=== PATIENT | female | born 1940 | race Caucasian/White ===

== ENCOUNTER 2016-03-25 08:30 | Day surgery (SDC) | payer MEDICARE, MEDICAID ==
[2016-03-20 11:48] VITALS: BMI 28.1
[~2016-03-25 08:30] MED LIST: LACTATED RINGERS 1,000 ML IV SCH
[2016-03-25 09:31] VITALS: TEMP 98
[2016-03-25] MEDS ORDERED: LIDOCAINE 1% 20 ML VIAL (10MG/ML) FOR IV START INTRADERMA ONE (09:32)
[2016-03-25] MEDS ORDERED: PROPOFOL 10 MG/ML 20 ML VIAL IV ONE (09:39)
--- NOTE | 2016-03-25 09:49 | P.PCN ---
Date of Procedure: 03/25/16 Procedure(s) Performed: BRIEF HISTORY: Patient is a 76-year-old, pleasant, white female, scheduled for an upper endoscopy as a part of evaluation of dysphagia to solids for the last few months duration. She feels food gets stuck in the midsternal area, usually with solids and occasionally with liquids. She does have long-standing history history of Parkinson's disease. PROCEDURE PERFORMED: Esophagogastroduodenoscopy with biopsy PREOPERATIVE DIAGNOSIS: Intermittent dysphagia to solids . IV sedation per anesthesia. PROCEDURE: After informed consent was obtained, the patient was brought into the endoscopy unit. IV conscious sedation was administered by Anesthesia under continuous monitoring. Initially the Olympus GIF-140 video endoscope was inserted into the mouth. Esophagus intubated without any difficulty. It was gradually advanced into the stomach and duodenum and carefully examined. The bulb and the second part of the duodenum appeared normal. The scope at this time was withdrawn to the stomach, adequately insufflated with air, and upon careful examination, mucosa of the antrum, body, cardia and the fundus appeared normal. The scope was then withdrawn into the esophagus. Small hiatal hernia noted. The GE junction was located at 35 cm from the incisors. The rest of the esophagus appeared normal. There were 2 distal esophageal erosions with some thickened mucosal folds consistent with LA grade B reflux esophagitis. The patient tolerated the procedure well. IMPRESSION: 1. Small hiatal hernia. 2. 2 linear erosions with some thickened esophageal folds in the distal esophagus consistent with LA grade B reflux esophagitis. 3. No evidence of esophageal stricture. RECOMMENDATIONS: The findings of this examination were discussed with the patient as well as a family. She was advised to follow with the biopsy results. In the meantime I suggested that she increase the Prevacid 30 mg twice daily to be taken half hour before breakfast and dinnertime and follow antireflux measures
[2016-03-25 09:54] VITALS: RESP 16
[2016-03-25 10:13] VITALS: BP 185/77; PULSE 60
--- NOTE | 2016-04-08 20:15 | PCN ---
DATE OF PROCEDURE: 03/25/2016 ADDENDUM TO EGD PROCEDURE NOTE Biopsies were done from the mid/distal esophagus to rule out eosinophilic esophagitis.
== END 2016-03-25 10:48 | disposition home or self-care (01) ==
LOC: ORWHC2ENDO 08:30
PROVIDERS: ATTEND Internal Medicine Gastroenterology
DX: K21.0 Gastro-esophageal reflux disease with esophagitis (principal); K20.0 Eosinophilic esophagitis; K44.9 Diaphragmatic hernia without obstruction or gangrene; I10 Essential (primary) hypertension; E78.5 Hyperlipidemia, unspecified; I25.10 Atherosclerotic heart disease of native coronary artery without angina pectoris; Z95.5 Presence of coronary angioplasty implant and graft; I35.0 Nonrheumatic aortic (valve) stenosis; Z79.82 Long term (current) use of aspirin; Z79.899 Other long term (current) drug therapy
CPT/HCPCS: 88305; 88312; 43239; J2704

== ENCOUNTER → 2016-09-17 | Outpatient (CLI) | payer MEDICARE, MEDICAID ==
--- NOTE | 2016-09-17 23:58 | CONS ---
DATE OF SERVICE: 09/17/2016 This patient is a 76-year-old lady who has been evaluated in the sleep center for obstructive sleep apnea/hypopnea syndrome. HISTORY OF PRESENT ILLNESS/SLEEP-WAKE EVALUATION: History-taking is from the patient and her . Patient was diagnosed with obstructive sleep apnea about 10 years ago. Since that time she has been on treatment with CPAP. Recently, according to her , she opens her mouth while she is using her CPAP and basically cannot properly use the equipment. The patient brought her CPAP unit, which I checked. CPAP pressure is 6 cm of water. Usage is more than 4 hours for only 2 out of 30 nights. The patient's usual sleep schedule is from around 9 p.m. to 7 or 8 a.m. She did not describe any problems with falling asleep. She has a TV set in the bedroom. She wakes up from sleep 2 times, with one episode of nocturia. She snores, has episodes of stopped breathing and choking, heartburn and a history of sleeptalking. [place] Sleepiness Scale is 8. PAST MEDICAL HISTORY: 1. Hypertension. 2. Hyperlipidemia. 3. Some muscle problems. 4. Macular degeneration. PAST SURGICAL HISTORY: 1. Bilateral knee replacement. 2. Cholecystectomy. SOCIAL HISTORY: Negative for smoking or using alcohol. MEDICATIONS: 1. Imdur. 2. Prevacid. 3. Folic acid. 4. Chas Red. 5. Ergocalciferol. 6. Aspirin. 7. Repatha. 8. Coreg. 9. Lisinopril. 10. Melatonin. 11. Dulcolax. 12. Calcium. 13. Vitamin E. 14. Claritin. 15. Advil at bedtime. REVIEW OF SYSTEMS: No fevers. No double vision. No recent chest pain. No shortness of breath. No abdominal pain. No bleeding episodes. No blood in urine. No seizure episodes. Snoring. Sleepiness during the day. Falling asleep in the late afternoon. FAMILY HISTORY: Hypertension, heart problems, hyperlipidemia, stroke, arthritis , sleep apnea, snoring, acid reflux ( ). PHYSICAL EXAM: The patient is a pleasant 76-year-old lady without distress, sitting on the chair, turned to the right. GENERAL: A pleasant patient without distress. HEENT: PERRLA. EOMI. Evaluation of oropharynx showed tongue protrudes midline. Extremely low position of soft palate. NECK: Supple. No JVD. Thyroid is not palpable. LUNGS: Clear to percussion and to auscultation. Good air exchange. No wheezing or rhonchi. HEART: S1, S2 regular. Loud systolic murmur on aorta. ABDOMEN: Slightly obese. EXTREMITIES: No clubbing or cyanosis. Scars on both legs after total knee replacements. 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 Eyes partially closed. Walks with a walker. Balance problems. IMPRESSION: 1. History of obstructive sleep apnea for 10 years. Extremely low position of soft palate. Some restriction of nasal breathing. Not good compliance with CPAP treatment at the present time. 2. Hypertension. 3. Hyperlipidemia. 4. Acid reflux. 5. Balance problems. 6. Horizontal nystagmus. 7. Status post bilateral knee replacement. 8. Status post cholecystectomy. 9. History of macular degeneration. PLAN: 1. Prescription for all necessary CPAP supplies, including mask, tube, filters, chin strap. 2.Follow-up visit to check patient's compliance with treatment and to evaluate her clinical response on treatment by evaluation of apnea/hypopnea index with following decision about necessity to repeat her CPAP titration. 3. Sleep hygiene with regular time in bed for at least 8 hours. [address] Patient [address] not [address]. Thank you very much for referring this patient for consultation. Sincerely, Steven Andrade. , PhD, FAASM. Diplomat of [place] [employer], Sleep Medicine Board by [place] [employer] [place] [employer] Coating Machine Helper of [facility] [place] [facility]
--- NOTE | 2016-09-18 07:38 | CONS ---
DATE OF CONSULT: 09/17/2016 HISTORY OF PRESENT ILLNESS/SLEEP WAKE EVALUATION: 76 year old lady has been evaluated in the sleep center for evaluation of obstructive sleep apnea/ hypopnea syndrome. History taken from the patient and her . The patient has been diagnosed with obstructive sleep apnea about ten years ago. Since that time, on treatment with CPAP. Recently according to her , she opened her mouth while using her CPAP and basically cannot properly use equipment. The patient brought her CPAP unit. I checked CPAP unit. CPAP pressure 6 cm of water. Usage is more than 4 hours. Only 2 out of 30 nights. SLEEP SCHEDULE: The patient's usual sleep schedule from around 9:00 p.m. until 7 or 8 a.m. FALLING ASLEEP: She did not describe any problem with falling asleep. She had t.v. set in bedroom. DURING SLEEP: She wakes up from sleep two times with one episode of nocturia. She snores. Has episodes of stopped breathing and choking. Heartburn. Positive of sleep talking. DURING THE DAY/WAKE STATE: [place] sleep scale is 8. Medications: 1. Imdur. 2. Prevacid. 3. Folic acid. 4. ( ). 5. Ergocalciferol. 6. Aspirin. 7. ( ). 8. Coreg. 9. Lisinopril. 10. Melatonin. 11. Dulcolax. 12. Calcium. 13. Vitamin E. 14. Claritin. 15. Advil at bedtime. PAST MEDICAL HISTORY: Hypertension, hyperlipidemia, some muscle problem, macular degeneration. Past surgical history: Bilateral knee replacement, cholecystectomy. FAMILY HISTORY: Hypertension, heart problems, hyperlipidemia, stroke, arthritis , sleep apnea, snoring, acid reflux, ( ). SOCIAL HISTORY: Negative for smoking or using alcohol. REVIEW OF SYSTEMS: Snoring. Sleepiness during the day. Falling asleep late afternoon. No fevers. No double vision. No recent chest pain. No shortness of breath. No abdominal pain. No bleeding episodes. No blood in urine. No seizure episodes. PHYSICAL EXAM: GENERAL: A pleasant 76 year old lady patient without any distress. Sitting on the chair, turned to the right. VITAL SIGNS: BP, HR, RR, weight, body mass index. HEENT: PERRLA, EOMI. Evaluation of oropharynx shows extremely low position of soft palate. Tongue protrudes midline. NECK: Supple. No JVD. Thyroid is not palpable. LUNGS: Clear to auscultation and percussion. Good air exchange. No wheezing or rhonchi. HEART: S1, S2 regular. Loud systolic murmur on aorta. ABDOMEN: Slightly obese. Soft, nontender. Bowel sounds are preset. No organomegaly appreciated. EXTREMITIES: Scars on both legs after total knee replacement. No clubbing or cyanosis. 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 Eyes partially closed. Walks with a walker. Balance problems. Awake, alert and oriented times three. IMPRESSION: 1. History of obstructive sleep apnea for ten years. Extremely low position of soft palate. Some restriction of nasal breathing. Not good compliance with CPAP treatment at the present time. 2. Hypertension. 3. Hyperlipidemia. 4. Acid reflux. 5. Balance problems. 6. Horizontal nystagmus. 7. Status post bilateral knee replacement. 8. Status post cholecystectomy. 9. History of macular degeneration. PLAN: 1. Prescription for all necessary CPAP supplies including mask, tubes, filters , chin strap. 2. Follow up visit to check patient compliance with treatment and to evaluate her clinical response on treatment by evaluation apnea/hypopnea index with following decision about necessity to repeat her CPAP titration. 3. Sleep hygiene with regular time in bed for at least eight hours. 4. No driving. Patient does not drive. Thank you for referring this patient for consultation. Sincerely, Steven Andrade MD, PhD, FAASM Diplomat of [place] [employer]. Sleep Medicine Board by [place] [employer] [place] [employer] Assurance Sourcing Manager of [facility]
== END | disposition home or self-care (01) ==
LOC: SLEEP 15:03
PROVIDERS: ATTEND Internal Medicine
DX: K21.9 Gastro-esophageal reflux disease without esophagitis (principal); H55.00 Unspecified nystagmus; I10 Essential (primary) hypertension; E78.5 Hyperlipidemia, unspecified; Z90.49 Acquired absence of other specified parts of digestive tract; Z96.653 Presence of artificial knee joint, bilateral
CPT/HCPCS: 99211

== ENCOUNTER → 2017-01-28 | Outpatient (CLI) | payer MEDICARE, MEDICAID ==
--- NOTE | 2017-01-28 15:17 | PN ---
PROGRESS NOTE DATE OF SERVICE: 01/28/2017. 77-year-old lady who has been followed in Sleep Center for treatment of obstructive sleep apnea-hypopnea syndrome. Recently she has a CPAP titration and on the basis of results of titration see received new CPAP unit results of titration was very good. At the pressure off 10 cm of water her respiration normalized. Apnea-hypopnea index was 1.6 with oxygen level above 92.6%. The patient came for followup visit with her new CPAP unit. According to her , she opens her mouth during the sleep. I checked her CPAP unit. CPAP pressure is 10 cm of water. Usage is / nights for more than 4 hours, average 8.4 hours. Very good compliance. Extremely high level of leak 65 L/minute. Apnea-hypopnea index reading from the machine is high 26.1 with total apnea index 25.9 and central apnea index 7.3. MEDICATIONS: Include Prevacid, Adderall, ergocalciferol, aspirin, , Coreg, lisinopril, melatonin, Dulcolax, calcium, vitamin E, Claritin. PHYSICAL EXAM: GENERAL The patient in no distress. VITAL SIGNS BP 141/80, HR 60, RR 16, weight 150 pounds, temperature 98.4, oxygen saturation room air 98%. HEENT PERRLA, EOMI, evaluation of oropharynx showed extremely low position of soft palate. NECK Supple, no JVD. Thyroid is not palpable. LUNGS Clear to percussion and to auscultation. Good air exchange. No wheezing or rhonchi. HEART Loud systolic murmur on aorta. ABDOMEN Soft and nontender. Bowel sounds are present. No organomegaly appreciated. EXTREMITIES No clubbing or cyanosis. [employer] Awake, alert, and oriented X3. Cranial nerves 2 to 7 intact. There is no fasciculation or atrophy. noted. No focal deficits observed. Horizontal nystagmus, looks sleepy, walks with a walker and some balance problems. IMPRESSION: 1. Obstructive sleep apnea-hypopnea syndrome. The patient demonstrated great compliance with treatment benefitting from treatment. 2. Extremely high leak with treatment most probably related to opening her mouth and this could be the reason for insufficient pressure in her oropharynx and subsequently insufficient treatment. 3. Hypertension. 4. Hyperlipidemia. 5. Balance problems. 6. Acid reflux. 7. Status post bilateral knee replacement. 8. Status post cholecystectomy. 9. History of macular degeneration. PLAN: 1. Will try chinstrap with a goal to prevent opening mouth during the sleep. 2. I will recheck the patient data with the usage of a chinstrap. Hopefully it will help her to breathe better during the sleep. 3. Continue to use CPAP equipment every night. 4. Sleep hygiene with time in bed at least 8 hours. 5. The patient does not drive. Thank you very much for allowing me to participate in management of your patient. The patient was tried previously on the fullface mask, but she cannot tolerate that. MMODL / IJN: [id number] /
== END | disposition home or self-care (01) ==
LOC: SLEEP 13:37
PROVIDERS: ATTEND Internal Medicine
DX: G47.33 Obstructive sleep apnea (adult) (pediatric) (principal); I10 Essential (primary) hypertension; E78.5 Hyperlipidemia, unspecified; K21.9 Gastro-esophageal reflux disease without esophagitis; Z90.49 Acquired absence of other specified parts of digestive tract; Z96.653 Presence of artificial knee joint, bilateral; Z86.69 Personal history of other diseases of the nervous system and sense organs; Z79.82 Long term (current) use of aspirin; Z79.02 Long term (current) use of antithrombotics/antiplatelets; Z79.899 Other long term (current) drug therapy

== ENCOUNTER 2017-02-25 14:32 | Emergency (ER) | payer MEDICARE, MEDICAID ==
[~2017-02-25 14:32] MED LIST changes: -LACTATED RINGERS 1,000 ML IV SCH; +SODIUM BICARB 8.4% 50 ML SYR (1 MEQ/ML) ONE
[2017-02-25] MEDS ORDERED: AMIODARONE 50 MG/ML 3 ML VIAL IV ONE (14:33)
[2017-02-25] MEDS ORDERED: EPINEPHrine 10 ML SYRINGE (0.1 MG/ML) IV ONE (14:33)
[2017-02-25] MEDS ORDERED: LORazepam 2 MG/ML INJ IV PRN ×2 (14:39)
[2017-02-25] MEDS ORDERED: PROPOFOL 1,000 MG in EMPTY BAG 1 BAG IV SCH (14:45)
--- NOTE | 2017-02-25 14:58 | ED ---
General Adult HPI - General Chief complaint: Cardiac Arrest/CPR Stated complaint: UNRESPONSIVE Time Seen by Provider: 02/25/17 14:39 Source: EMS, RN notes reviewed Mode of arrival: EMS Limitations: altered mental status, physical limitation - History of Present Illness Initial comments: Patient is an unresponsive 77-year-old female presenting to the emergency department as a priority 1 cardiac arrest. Patient arrives by EMS. Patient is unresponsive and provides no history. Medics report patient originally called for dyspnea. They did receive a call at 1317. They did arrive on scene at 1329 and patient was in asystole with bystander CPR. They did provide 8 epinephrine. Patient originally was asystole however converted to PEA. Further history is limited. - Related Data Home Medications Medication Instructions Recorded Confirmed Aspirin 81 mg PO AC-BRKFST 10/14/14 02/25/17 Bisacodyl [Dulcolax] 5 mg PO DAILY PRN 10/14/14 02/25/17 Calcium/Magnesium/Zinc 3 tab PO DAILY 10/14/14 02/25/17 [Ptwwlan-Odduzryzh-Okkz Tablet] Carvedilol [Coreg] 6.25 mg PO AC-BID 10/14/14 02/25/17 Ergocalciferol [Vitamin D2] 50,000 unit PO WE 10/14/14 02/25/17 Ibuprofen/Diphenhydramine HCl 2 cap PO HS PRN 10/14/14 02/25/17 [Advil Pm Liqui-Gels] Isosorbide Mononitrate ER [Imdur] 30 mg PO HS 10/14/14 02/25/17 Megared 500 mg PO AC-BRKFST 10/14/14 02/25/17 Melatonin 5 mg PO HS 10/14/14 02/25/17 Vitamin E (Dl,Tocopheryl Acet) 400 unit PO AC-BRKFST 10/14/14 02/25/17 [Vitamin E] Evolocumab [Repatha Sureclick] 140 mg SQ Q14D 03/20/16 02/25/17 Ubidecarenone [Co Q-10] 200 mg PO BID 03/20/16 02/25/17 Lisinopril [Zestril] 10 mg PO BID 02/25/17 02/25/17 Loratadine [Claritin] 10 mg PO AC-BRKFST PRN 02/25/17 02/25/17 Pantoprazole Sodium [Protonix] 40 mg PO DAILY 02/25/17 02/25/17 Vit C/E/Zn/Coppr/Lutein/Zeaxan 1 cap PO BID 02/25/17 02/25/17 [Preservision Areds 2 Softgel] Vitamin B Complex 1 cap PO AC-BRKFST 02/25/17 02/25/17 Allergies Allergy/AdvReac Type Severity Reaction Status Date / Time No Known Allergies Allergy Verified 02/25/17 15:10 Review of Systems ROS Statement: Those systems with pertinent positive or pertinent negative responses have been documented in the HPI. ROS Other: All systems not noted in ROS Statement are negative. Limitations: ROS unobtainable due to patients medical condition Respiratory: Reports: dyspnea Past Medical History Past Medical History: Coronary Artery Disease (CAD), Hyperlipidemia, Hypertension Additional Past Medical History / Comment(s): parkinson disease, aortic stenosis ; low iron History of Any Multi-Drug Resistant Organisms: None Reported Past Surgical History: Back Surgery, Cholecystectomy, Heart Catheterization With Stent, Joint Replacement Additional Past Surgical History / Comment(s): L & R knee relpacements Past Anesthesia/Blood Transfusion Reactions: No Reported Reaction Date of Last Stent Placement:: 2011 Past Psychological History: No Psychological Hx Reported Smoking Status: Never smoker Past Alcohol Use History: None Reported Past Drug Use History: None Reported - Past Family History Mother Family Medical History: No Reported History General Exam Limitations: altered mental status, physical limitation General appearance: obtunded Head exam: Present: atraumatic Eye exam: Present: other (Pupils fixed and dilated) ENT exam: Present: other (Intubated) Neck exam: Present: normal inspection Respiratory exam: Present: rales Cardiovascular Exam: Present: other (No pulse. No spontaneous heart sounds) GI/Abdominal exam: Present: soft. Absent: tenderness Extremities exam: Present: normal inspection Neurological exam: Present: other (Unresponsive. GCS 3.) Psychiatric exam: Present: other (Unresponsive) Skin exam: Present: pallor Course Vital Signs 02/25/17 02/25/17 02/25/17 15:21 15:31 15:39 Temperature 97.2 F L Pulse Rate 62 61 43 L Respiratory 12 12 12 Rate Blood Pressure 92/53 99/60 O2 Sat by Pulse 66 L 70 L Oximetry - Reevaluation(s) Reevaluation #1: 02/25/17 14:58 Shortly after arrival and 1 epinephrine patient did have return of pulse. Patient lost this after several minutes and had returned again after 1 epinephrine. 02/25/17 15:08 Case was discussed with cardiology Dr. Ayala who agrees there is not value [place] patient to the [employer] at this time. 02/25/17 15:15 Daughter updated. She would like patient to remain full code at this time. 02/25/17 16:18 Patient again lost pulses at 1545. Patient had PA and V. fib and then asystole. At 1605 patient continued to have no pulse. Asystole. No spontaneous respirations. Pupils fixed and dilated. No response to pain. No heart sounds. Time of is 1605. Family is present and notified. 02/25/17 16:19 Patient did have copious amounts of blood coming from the endotracheal tube, oral gastric tube, and rectum. 02/25/17 16:[address] Galdamez out of [place] who is familiar with this patient. She states patient does have a mild Parkinson-like disease. worker's compensation claims examiner Jessica was notified and does okay to release the body. EKG Findings - EKG Comments: EKG Findings:: EKG shows normal sinus rhythm 85. MT 184. QRS 108. QT 428. QTC 509. Normal axis. ST elevation inferior with reciprocal changes V2 through V3. Procedures - ABG Interpretation Ph: 6.99 PCO2: 69.3 PO2: 68 Interpretation: respiratory acidosis, metabolic acidosis Medical Decision Making - Lab Data Result diagrams: 02/25/17 15:42 02/25/17 15:42 Lab Results 02/25/17 02/25/17 02/25/17 Range/Units 15:24 15:30 15:42 WBC 16.1 H (3.8-10.6) k/uL RBC 3.90 (3.80-5.40) m/uL Hgb 11.7 (11.4-16.0) gm/dL Hct 37.8 (34.0-46.0) % MCV 96.9 (80.0-100.0) fL MCH 30.1 (25.0-35.0) pg MCHC 31.0 (31.0-37.0) g/dL RDW 13.2 (11.5-15.5) % Plt Count 207 (150-450) k/uL Neutrophils % 73 % Lymphocytes % 22 % Monocytes % 2 % Eosinophils % 1 % Basophils % 1 % Neutrophils # 11.8 H (1.3-7.7) k/uL Lymphocytes # 3.6 (1.0-4.8) k/uL Monocytes # 0.3 (0-1.0) k/uL Eosinophils # 0.2 (0-0.7) k/uL Basophils # 0.1 (0-0.2) k/uL Hypochromasia Marked PT (9.0-12.0) sec INR (<1.2) APTT (22.0-30.0) sec Sample Site R BRACH ABG pH <7.00 L* (7.35-7.45) ABG pCO2 69 H (35-45) mmHg ABG pO2 68 L (83-108) mmHg ABG HCO3 16 L (21-25) mmol/L ABG Total CO2 18 L (19-24) mmol/L ABG O2 Saturation 80.0 L (94-97) % ABG Base Excess -13.7 mmol/L Marshal Test Yes FiO2 100 % Sodium (137-145) mmol/L Potassium (3.5-5.1) mmol/L Chloride (98-107) mmol/L Carbon Dioxide (22-30) mmol/L Anion Gap mmol/L BUN (7-17) mg/dL Creatinine (0.52-1.04) mg/dL Est GFR (MDRD) Af Amer (>60 ml/min/1.73 sqM) Est GFR (MDRD) Non-Af (>60 ml/min/1.73 sqM) Glucose (74-99) mg/dL Calcium (8.4-10.2) mg/dL Total Bilirubin (0.2-1.3) mg/dL AST (14-36) U/L ALT (9-52) U/L Alkaline Phosphatase (38-126) U/L Total Creatine Kinase (30-135) U/L CK-MB (CK-2) (0.0-2.4) ng/mL CK-MB (CK-2) Rel Index Troponin I (0.000-0.034) ng/mL NT-Pro-B Natriuret Pep pg/mL Total Protein (6.3-8.2) g/dL Albumin (3.5-5.0) g/dL Urine Color Yellow Urine Appearance Cloudy H (Clear) Urine pH 6.0 (5.0-8.0) Ur Specific [place] 1.014 (1.001-1.035) Urine Protein 1+ H (Negative) Urine Glucose (UA) Negative (Negative) Urine Ketones Negative (Negative) Urine Blood Negative (Negative) Urine Nitrite Positive H (Negative) Urine Bilirubin Negative (Negative) Urine Urobilinogen <2.0 (<2.0) mg/dL Ur Leukocyte Esterase Trace H (Negative) Urine RBC 5 (0-5) /hpf Urine WBC 20 H (0-5) /hpf Urine Bacteria Many H (None) /hpf Urine Mucus Many H (None) /hpf 02/25/17 02/25/17 02/25/17 Range/Units 15:42 15:42 15:42 WBC (3.8-10.6) k/uL RBC (3.80-5.40) m/uL Hgb (11.4-16.0) gm/dL Hct (34.0-46.0) % MCV (80.0-100.0) fL MCH (25.0-35.0) pg MCHC (31.0-37.0) g/dL RDW (11.5-15.5) % Plt Count (150-450) k/uL Neutrophils % % Lymphocytes % % Monocytes % % Eosinophils % % Basophils % % Neutrophils # (1.3-7.7) k/uL Lymphocytes # (1.0-4.8) k/uL Monocytes # (0-1.0) k/uL Eosinophils # (0-0.7) k/uL Basophils # (0-0.2) k/uL Hypochromasia PT 15.4 H (9.0-12.0) sec INR 1.7 H (<1.2) APTT 47.6 H (22.0-30.0) sec Sample Site ABG pH (7.35-7.45) ABG pCO2 (35-45) mmHg ABG pO2 (83-108) mmHg ABG HCO3 (21-25) mmol/L ABG Total CO2 (19-24) mmol/L ABG O2 Saturation (94-97) % ABG Base Excess mmol/L Marshal Test FiO2 % Sodium 140 (137-145) mmol/L Potassium 6.3 H* (3.5-5.1) mmol/L Chloride 112 H (98-107) mmol/L Carbon Dioxide 15 L (22-30) mmol/L Anion Gap 13 mmol/L BUN 25 H (7-17) mg/dL Creatinine 1.26 H (0.52-1.04) mg/dL Est GFR (MDRD) Af Amer 50 (>60 ml/min/1.73 sqM) Est GFR (MDRD) Non-Af 41 (>60 ml/min/1.73 sqM) Glucose 174 H (74-99) mg/dL Calcium 9.2 (8.4-10.2) mg/dL Total Bilirubin 0.4 (0.2-1.3) mg/dL AST 376 H (14-36) U/L ALT 310 H (9-52) U/L Alkaline Phosphatase 174 H (38-126) U/L Total Creatine Kinase 276 H (30-135) U/L CK-MB (CK-2) 7.5 H* (0.0-2.4) ng/mL CK-MB (CK-2) Rel Index 2.7 Troponin I 0.407 H* (0.000-0.034) ng/mL NT-Pro-B Natriuret Pep pg/mL Total Protein 5.9 L (6.3-8.2) g/dL Albumin 2.9 L (3.5-5.0) g/dL Urine Color Urine Appearance (Clear) Urine pH (5.0-8.0) Ur Specific [place] (1.001-1.035) Urine Protein (Negative) Urine Glucose (UA) (Negative) Urine Ketones (Negative) Urine Blood (Negative) Urine Nitrite (Negative) Urine Bilirubin (Negative) Urine Urobilinogen (<2.0) mg/dL Ur Leukocyte Esterase (Negative) Urine RBC (0-5) /hpf Urine WBC (0-5) /hpf Urine Bacteria (None) /hpf Urine Mucus (None) /hpf 02/25/ Range/Units 15:42 WBC (3.8-10.6) k/uL RBC (3.80-5.40) m/uL Hgb (11.4-16.0) gm/dL Hct (34.0-46.0) % MCV (80.0-100.0) fL MCH (25.0-35.0) pg MCHC (31.0-37.0) g/dL RDW (11.5-15.5) % Plt Count (150-450) k/uL Neutrophils % % Lymphocytes % % Monocytes % % Eosinophils % % Basophils % % Neutrophils # (1.3-7.7) k/uL Lymphocytes # (1.0-4.8) k/uL Monocytes # (0-1.0) k/uL Eosinophils # (0-0.7) k/uL Basophils # (0-0.2) k/uL Hypochromasia PT (9.0-12.0) sec INR (<1.2) APTT (22.0-30.0) sec Sample Site ABG pH (7.35-7.45) ABG pCO2 (35-45) mmHg ABG pO2 (83-108) mmHg ABG HCO3 (21-25) mmol/L ABG Total CO2 (19-24) mmol/L ABG O2 Saturation (94-97) % ABG Base Excess mmol/L Marshal Test FiO2 % Sodium (137-145) mmol/L Potassium (3.5-5.1) mmol/L Chloride (98-107) mmol/L Carbon Dioxide (22-30) mmol/L Anion Gap mmol/L BUN (7-17) mg/dL Creatinine (0.52-1.04) mg/dL Est GFR (MDRD) Af Amer (>60 ml/min/1.73 sqM) Est GFR (MDRD) Non-Af (>60 ml/min/1.73 sqM) Glucose (74-99) mg/dL Calcium (8.4-10.2) mg/dL Total Bilirubin (0.2-1.3) mg/dL AST (14-36) U/L ALT (9-52) U/L Alkaline Phosphatase (38-126) U/L Total Creatine Kinase (30-135) U/L CK-MB (CK-2) (0.0-2.4) ng/mL CK-MB (CK-2) Rel Index Troponin I (0.000-0.034) ng/mL NT-Pro-B Natriuret Pep 322 pg/mL Total Protein (6.3-8.2) g/dL Albumin (3.5-5.0) g/dL Urine Color Urine Appearance (Clear) Urine pH (5.0-8.0) Ur Specific [place] (1.001-1.035) Urine Protein (Negative) Urine Glucose (UA) (Negative) Urine Ketones (Negative) Urine Blood (Negative) Urine Nitrite (Negative) Urine Bilirubin (Negative) Urine Urobilinogen (<2.0) mg/dL Ur Leukocyte Esterase (Negative) Urine RBC (0-5) /hpf Urine WBC (0-5) /hpf Urine Bacteria (None) /hpf Urine Mucus (None) /hpf - Radiology Data Radiology results: image reviewed (Chest x-ray shows left upper lobe opacity, large.) Critical Care Time Critical Care Time: Yes Total Critical Care Time: 43 Disposition Clinical Impression: Cardiac arrest Disposition: Referrals: None,Stated [Primary Care Provider] - 1-2 days Time of Disposition: 16:19 Preliminary Cause of : Cardiopulmonary arrest
[2017-02-25] MEDS ORDERED: EPINEPHrine 2 MG in DEXTROSE 5% IN WATER 250 ML IV ONE ×2 (15:00)
--- NOTE | 2017-02-25 15:10 | XR ---
EXAMINATION TYPE: XR chest 1V portable DATE OF EXAM: 02/25/2017 Comparison: 10/14/2014 Clinical History: 77-year-old female Tube placement Findings: ET tube tip is located 2.6 cm from the petr. Prominent air distention of the stomach. The heart is upper limits of normal in size. Patchy and confluent consolidation within the left upper and midlung. No pneumothorax or pleural effusion seen. Impression: Consolidation throughout the left upper and midlung. Correlate as to etiology. Satisfactory ET tube. Prominent air distention of the stomach.
[2017-02-25 15:23] VITALS: RESP 12
[2017-02-25 15:31] LABS: Appearance,Urine Cloudy (Clear); Bacteria,Urine Many /hpf; Bilirubin,Urine Negative (Negative); Blood,Urine Negative (Negative); Color,Urine Yellow; Glucose,Urine (UA) Negative (Negative); Ketones,Urine Negative (Negative); Leukocyte Esterase,Urine Trace (Negative); Mucus,Urine Many /hpf; Nitrite,Urine Positive (Negative); Protein,Urine 1+ (Negative); RBC,Urine 5 /hpf (0-5); Specific Gravity,Urine 1.014 (1.001-1.035); Urobilinogen,Urine <2.0 mg/dL (<2.0); WBC,Urine 20 /hpf (0-5)
[2017-02-25 15:33] VITALS: BP 99/60; TEMP 97.2
[2017-02-25 15:40] VITALS: PULSE 43
[2017-02-25 15:50] LABS: Basophils # (A) 0.1 k/uL (0-0.2); Basophils % (A) 1 %; Eosinophils # (A) 0.2 k/uL (0-0.7); Eosinophils % (A) 1 %; HCT 37.8 % (34.0-46.0); HGB 11.7 gm/dL (11.4-16.0); Hypochromasia Marked; Lymphocytes # (A) 3.6 k/uL (1.0-4.8); Lymphocytes % (A) 22 %; MCH 30.1 pg (25.0-35.0); MCV 96.9 fL (80.0-100.0); Mean Platelet Volume 9.3; Monocytes # (A) 0.3 k/uL (0-1.0); Monocytes % (A) 2 %; Neutrophils # (A) 11.8 k/uL (1.3-7.7); Neutrophils % (A) 73 %; Platelet Count 207 k/uL (150-450); RDW 13.2 % (11.5-15.5); WBC 16.1 k/uL (3.8-10.6)
[2017-02-25 15:59] LABS: INR 1.7 (<1.2); Partial Thromboplastin Time 47.6 sec (22.0-30.0); Prothrombin Time 15.4 sec (9.0-12.0)
[2017-02-25 16:06] LABS: Albumin 2.9 g/dL (3.5-5.0); Calcium 9.2 mg/dL (8.4-10.2); Total Bilirubin 0.4 mg/dL (0.2-1.3); Total Protein 5.9 g/dL (6.3-8.2)
[2017-02-25 16:08] LABS: Potassium 6.3 mmol/L (3.5-5.1)
[2017-02-25 16:28] LABS: ABG PCO2 69 mmHg (35-45); ABG PH <7.00 (7.35-7.45); ABG PO2 68 mmHg (83-108)
[2017-02-25 16:29] LABS: ABG Base Excess -13.7 mmol/L; ABG HCO3 16 mmol/L (21-25); ABG TCO2 18 mmol/L (19-24)
[2017-02-25 16:31] LABS: Creatine Kinase MB 7.5 ng/mL (0.0-2.4)
[2017-02-25 16:32] LABS: Troponin I 0.407 ng/mL (0.000-0.034)
[2017-02-25] MEDS ORDERED: CHLORHEXIDINE GLUCONATE 15 ML CUP MUCOUS MEM SCH (21:00)
== END 2017-02-25 17:45 | disposition expired ==
LOC: EC 14:32
DX: I46.9 Cardiac arrest, cause unspecified (principal); I25.10 Atherosclerotic heart disease of native coronary artery without angina pectoris; E78.5 Hyperlipidemia, unspecified; I10 Essential (primary) hypertension; Z79.82 Long term (current) use of aspirin; Z79.899 Other long term (current) drug therapy
CPT/HCPCS: 99291; 96365; 96366 ×2; 36415; 36600; 94002; 93005; 83880; 80053; 82550; 82553; 82805; 84484; 85025; 85610; 85730; 81001; 71010; J0171 ×2; J0282